=== PATIENT | female | born 1945 | race Caucasian/White ===

== ENCOUNTER 2019-03-13 08:56 | Outpatient (CLI) | payer MEDICARE, OTHER, SELFPAY ==
--- NOTE | 2019-03-13 09:04 | NM_ITS ---
WS: [id number] NUCLEAR MEDICINE PARATHYROID SCAN HISTORY: ATROPHY OF THYROID/CHRONIC KIDNEY DZ STAGE 3/HYPERCALCEMIA COMPARISON: None available. Patient is injected with 19.9 mCi technetium 99m Sestamibi. Static imaging of the anterior neck and u pper thorax submitted at injection time and one hour postinjection. Sternal notch marker and chin mar kers are placed. Normal activity in the thyroid gland during early imaging. Delayed imaging demonstrates washout of ra diotracer from the thyroid. There is an area of very vague increased uptake persisting along the infe rior RIGHT thyroid bed. NM/NM parathyroid [id number] IMPRESSION: Suspicious, very vague increased uptake persisting in the inferior RIGHT thyroi d bed. Suspicious for parathyroid adenoma.
== END 2019-03-13 08:57 | disposition home or self-care (01) ==
LOC: RAD 09:01
PROVIDERS: Family Provider Physician Assistant Medical; PCP Physician Assistant Medical; Visit Provider Internal Medicine Nephrology
DX: E03.4 Atrophy of thyroid (acquired) (principal); E83.52 Hypercalcemia; N18.3 Chronic kidney disease, stage 3 (moderate)
CPT/HCPCS: 78070; A9500

== ENCOUNTER 2021-06-01 11:24 | Emergency (ER) | payer MEDICARE, SELFPAY ==
[2021-06-01 12:23] VITALS: BP 118/84; PULSE 70; RESP 15; TEMP 36.8; O2SAT 97; BMI 32.5
[2021-06-01 16:45] LABS: Basophils % 0.2 %; Eosinophils % 0.2 %; Hematocrit 48.9 % (37.0-47.0); Hemoglobin 15.9 g/dL (11.5-15.3); Lymphocytes % 17.8 %; Mean Corpuscular HGB Conc 32.5 g/dL (30.0-36.0); Mean Corpuscular Hemoglobin 28.3 pg (28.0-34.0); Mean Corpuscular Volume 87.2 fl (81-99); Mean Platelet Volume 10.9 fL (7.4-10.4); Monocytes # 0.9 10^3/uL (0.2-0.9); Monocytes % 5.5 %; Neutrophils # 12.65 10^3/uL (1.8-7.7); Neutrophils % 75.9 %; Nucleated Red Blood Cells % 0 %; Platelet Count 478 10^3/cmm (130-400); Red Blood Count 5.61 10^6/uL (4.1-5.3); Red Cell Distribution Width 12.7 % (12.1-15.1); White Blood Count 16.7 10^3/uL (4.0-10.0)
[2021-06-01 17:15] LABS: Alanine Aminotransferase 7 U/L (0-33); Albumin Level 4.9 g/dL (3.5-5.2); Alkaline Phosphatase 112 IU/L (35-105); Anion Gap 20.3 (5-19); Aspartate Amino Transferase 14 U/L (0-32); Blood Urea Nitrogen 41 mg/dL (8-23); Calcium 10.6 mg/dL (8.5-10.5); Carbon Dioxide 22 mmol/L (22-29); Chloride 96 mmol/L (98-107); Globulin 2.8 g/dL (1.3-4.6); Glucose 97 mg/dL (65-115); Lipase 19 U/L (13-60); Osmolality Calculated 288 mOsm/kg (285-295); Potassium 4.3 mmol/L (3.5-5.1); Sodium 134 mmol/L (136-145); Total Bilirubin 0.5 mg/dL (0.15-1.2); Total Protein 7.7 g/dL (6.6-8.7)
[2021-06-01 17:18] LABS: INR 1.19 (0.8-1.2)
[2021-06-01 17:19] LABS: Partial Thromboplastin Time 28.7 SECONDS (23.9-36.7)
--- NOTE | 2021-06-01 18:20 | CTR_ITS ---
PROCEDURE INFORMATION: Exam: CT Abdomen And Pelvis With Contrast Exam date and time: 06/01/2021 7:43 PM Age: 76 years old Clinical indication: Abdominal pain; Acute; Prior surgery; Surgery date: 6+ months; Surgery type: Lima, hyst; Patient HX: N/v/d. Heartburn; Additional info: Abd pain TECHNIQUE: Imaging protocol: Computed tomography of the abdomen and pelvis with contrast. Radiation optimization: All CT scans at this facility use at least one of these dose optimization techniques: automated exposure control; mA and/or kV adjustment per patient size (includes targeted exams where dose is matched to clinical indication); or iterative reconstruction. Contrast material: VISIPAQUE; Contrast volume: 95 ml; Contrast route: INTRAVENOUS (IV); COMPARISON: No relevant prior studies available. RADIATION DOSE METRICS: Total DLP (mGy-cm): 1495 FINDINGS: Lungs: The lung bases appear unremarkable. Diaphragm: There is a large hiatal hernia present. Liver: There are several punctate calcified granulomas in the liver. No acute hepatic abnormality. Gallbladder and bile ducts: The gallbladder is surgically absent. Pancreas: The pancreas is normal in appearance. No pancreatic duct dilatation. Spleen: Single calcified granuloma in the spleen. No acute splenic abnormality. Adrenal glands: The adrenal glands appear within normal limits. Kidneys and ureters: Multiple less than 10 mm low-density renal lesions, too small to characterize, likely small cysts. No hydronephrosis. Ureters appear normal. No obstructive uropathy. Stomach and bowel: The stomach is partially located within the hiatal hernia. There is mild compression of the body of the stomach, causing partial gastric outlet obstruction. The small bowel is unremarkable as demonstrated. No acute abnormality/inflammatory change of the colon. Appendix: No evidence of appendicitis. Intraperitoneal space: No free air. No significant fluid collection. Vasculature: The aorta is atherosclerotic. No aortic aneurysm. Lymph nodes: No pathologically enlarged lymph nodes are demonstrated. Urinary bladder: The urinary bladder is unremarkable in appearance. Reproductive: The uterus is not visualized, consistent with hysterectomy. Bones/joints: Degenerative spine changes are noted. No acute osseous abnormality. Soft tissues: The soft tissues appear unremarkable. CT/CT abdomen pelvis w con* [id number] IMPRESSION: 1. There is a large hiatal hernia present. 2. The stomach is partially located within the hiatal hernia. There is mild compression of the body of the stomach, causing partial gastric outlet obstruction. No ischemic change of the stomach. 3. Findings of old granulomatous disease are identified. COMMENTS: Consistent with the [employer]'s Incidental Findings Committee white paper (J Am Manuela Radiol 2018): Any incidental renal lesion less than 1 cm or classified as too small to characterize, or any incidental cystic renal lesion characterized as simple-appearing, is likely benign. No follow-up imaging is recommended for these lesions per consensus recommendations based on imaging criteria.
[2021-06-01 18:34] VITALS: BP 132/87; PULSE 68; RESP 18; O2SAT 98
--- NOTE | 2021-06-01 18:39 | W.ED.NAVMDI ---
HPI - Nausea/Vomiting/Diarrhea General: Chief complaint: Nausea/Vomiting/Diarrhea Stated complaint: Throwing up black with some pain in upper abd area Time Seen by Provider: 06/01/21 18:12 Source: patient Mode of arrival: ambulatory Limitations: no limitations History of Present Illness: 76-year-old female who states that she has been having some nausea vomiting over the last week she states she she had a food impaction a week ago but was able to vomit up after eat hamburger states that since then she been having some dark vomitus checks her PCP last week is trying to get into GI for a scope. She has had some epigastric abdominal pain states she has had some dark vomitus has not noticed any blood in her vomit has not had any change in of her stool color no dark tarry stool or blood in her stool. She denies any fevers. Denies any worsening proving factors last vomiting episode was last night states that actually her vomiting is improved and she felt better this evening. Associated nausea: Yes Associated symtoms: Reports nausea; Denies chest pain, dysuria or headache(s) Review of Systems Const: Denies: fever(s), chills, body aches or change in appetite Eyes: Denies: blurry vision or eye discomfort ENMT: Denies: throat pain or dental pain Card: Denies: chest pain Resp: Denies: dyspnea GI: Reports: abdominal pain, nausea and vomiting : Denies: dysuria Musc: Denies: neck pain or back pain Skin/Breast: Denies: rash Neuro: Denies: headache(s) Psych: Denies: depression Zane/Lymph: Denies: easy bruising All/Imm: Denies: urticaria PFS ED PFSH: Surgical History (Updated 06/01/21 @ 18:51 by Nic Anrdes MD) No pertinent past surgical history Social History (Updated 06/01/21 @ 18:51 by Nic Andres MD) Substance/Drug Use: never Physical Exam Const: COMMON NORMALS: no acute distress, patient oriented x3 and healthy appearing HENMT: COMMON NORMALS: normocephalic and atraumatic HEAD & SCALP: normocephalic and atraumatic Eye: COMMON NORMALS: Equal, round and reactive pupils present and EOMs intact bilaterally PUPIL: Yes Equal, round and reactive pupils present Neck/C-Spine: COMMON NORMALS: full ROM and supple Chest: COMMONS NORMALS: normal inspection of the chest and normal palpation of entire chest wall Resp: COMMON NORMALS: normal respiratory effort, No retractions, No use of accessory muscles and clear to auscultation bilaterally AUSCULTATION: clear to auscultation bilaterally Cardio: COMMON NORMALS: regular rate, regular rhythm and No murmurs present (Cardio) RATE: regular rate RHYTHM: regular rhythm GI: COMMON NORMALS: Normal to inspection, nondistended, normoactive bowel sounds present, Soft to palpation and no masses PALPATION: Yes Soft to palpation and Yes Tenderness to palpation present (GI) (epigastric tenderness) Extremity: COMMON NORMALS: normal to inspection and full ROM Neuro: COMMON NORMALS: patient oriented x3, moves all extremities and no focal motor deficits Psych: COMMON NORMALS: mental status grossly normal, Normal thought process present and cooperative THOUGHT PROCESS: Normal thought process present Skin: COMMON NORMALS: no rashes or lesions noted and no wounds GENERAL SKIN EXAM: no rashes or lesions noted Course Vital Signs: Vital signs: Vital Signs Temperature 98.2 F 06/01/21 12:23 Pulse Rate 78 06/01/21 20:33 Respiratory Rate 13 06/01/21 20:33 Blood Pressure 140/101 06/01/21 20:33 Pulse Oximetry 97 06/01/21 20:33 MDM - Nausea/Vomiting/Diarrhea Medical Decision Making Patient presents with abdominal pain along with vomiting CT scan did show a partial gastric obstruction with large hiatal hernia. I spoke to surgeon on-call here Dr. Mckeon who recommended patient being transferred to higher level care requiring GI. I did spoke to GI along with hospitalist at [facility] will transfer there at this time. She has been stable here. Lab Data : 06/01/21 16:16 06/01/21 16:16 Radiology Impressions Abdomen/Pelvis CT 06/01/21 18:20 IMPRESSION: 1. There is a large hiatal hernia present. 2. The stomach is partially located within the hiatal hernia. There is mild compression of the body of the stomach, causing partial gastric outlet obstruction. No ischemic change of the stomach. 3. Findings of old granulomatous disease are identified. COMMENTS: Consistent with the [employer]'s Incidental Findings Committee white paper (J Am Manuela Radiol 2018): Any incidental renal lesion less than 1 cm or classified as too small to characterize, or any incidental cystic renal lesion characterized as simple-appearing, is likely benign. No follow-up imaging is recommended for these lesions per consensus recommendations based on imaging criteria. Laboratory Results WBC 16.7 10^3/uL (4.0-10.0) H 06/01/21 16:16 RBC 5.61 10^6/uL (4.1-5.3) H 06/01/21 16:16 Hgb 15.9 g/dL (11.5-15.3) H 06/01/21 16:16 Hct 48.9 % (37.0-47.0) H 06/01/21 16:16 MCV 87.2 fl (81-99) 06/01/21 16:16 MCH 28.3 pg (28.0-34.0) 06/01/21 16:16 MCHC 32.5 g/dL (30.0-36.0) 06/01/21 16:16 RDW 12.7 % (12.1-15.1) 06/01/21 16:16 Plt Count 478 10^3/cmm (130-400) H 06/01/21 16:16 MPV 10.9 fL (7.4-10.4) H 06/01/21 16:16 Neut % (Auto) 75.9 % 06/01/21 16:16 Lymph % (Auto) 17.8 % 06/01/21 16:16 [place] % (Auto) 5.5 % 06/01/21 16:16 Eos % (Auto) 0.2 % 06/01/21 16:16 Baso % (Auto) 0.2 % 06/01/21 16:16 Neut # (Auto) 12.65 10^3/uL (1.8-7.7) H 06/01/21 16:16 Lymph # (Auto) 3.0 10^3/uL (0.8-4.8) 06/01/21 16:16 [place] # (Auto) 0.9 10^3/uL (0.2-0.9) 06/01/21 16:16 Eos # (Auto) 0.0 10^3/uL (0.0-0.8) 06/01/21 16:16 Baso # (Auto) 0.0 10^3/uL (0.0-0.1) 06/01/21 16:16 Nucleated RBC % (auto) 0 % 06/01/21 16:16 Nucleated RBCs # 0.0 /100WBC 06/01/21 16:16 PT 15.40 SECONDS (12.1-14.9) H 06/01/21 16:16 INR 1.19 (0.8-1.2) 06/01/21 16:16 APTT 28.7 SECONDS (23.9-36.7) 06/01/21 16:16 Sodium 134 mmol/L (136-145) L 06/01/21 16:16 Potassium 4.3 mmol/L (3.5-5.1) 06/01/21 16:16 Chloride 96 mmol/L (98-107) L 06/01/21 16:16 Carbon Dioxide 22 mmol/L (22-29) 06/01/21 16:16 Anion Gap 20.3 (5-19) H 06/01/21 16:16 BUN 41 mg/dL (8-23) H 06/01/21 16:16 Creatinine 1.2 mg/dL (0.5-0.9) H 06/01/21 16:16 GFR Calculation Not Reportable 06/01/21 16:16 Glucose 97 mg/dL (65-115) 06/01/21 16:16 Calculated Osmolality 288 mOsm/kg (285-295) 06/01/21 16:16 Lactic Acid 2.0 mmol/L (0.5-2.2) 06/01/21 22:00 Calcium 10.6 mg/dL (8.5-10.5) H 06/01/21 16:16 Total Bilirubin 0.5 mg/dL (0.15-1.2) 06/01/21 16:16 AST 14 U/L (0-32) 06/01/21 16:16 ALT 7 U/L (0-33) 06/01/21 16:16 Alkaline Phosphatase 112 IU/L (35-105) H 06/01/21 16:16 Total Protein 7.7 g/dL (6.6-8.7) 06/01/21 16:16 Albumin 4.9 g/dL (3.5-5.2) 06/01/21 16:16 Globulin 2.8 g/dL (1.3-4.6) 06/01/21 16:16 Lipase 19 U/L (13-60) 06/01/21 16:16 Gastric Occult Blood Negative (Negative) 06/01/21 20:39 Discharge Plan Discharge Patient Disposition: Xfer Short-Term Hosp Clinical Impression: Gastric outlet obstruction, Vomiting Condition: Stable Referrals: Kenneth Aquino [Primary Care Provider] - Coding Level of Care Code ED Telegraphic Typewriter Installer for Chg Fwd Exam Comprehensive
[2021-06-01] MEDS: sodium chloride 0.9% 1,000 ML 999 ML IV (18:50)
[2021-06-01] MEDS: ondansetron 2 mg/ML SDV 2 mL 4 MG IVP ×2 (18:50→20:30)
--- NOTE | 2021-06-01 18:51 | PC.NURSE ---
warm blanket provided to patient, patient denies any needs.
[2021-06-01 19:32] VITALS: BP 168/74; PULSE 62; RESP 17; O2SAT 99
[2021-06-01] MEDS: iodixanol 320 mg/mL 100mL Btl IV (20:12)
[2021-06-01 20:30] VITALS: RESP 16; O2SAT 96
[2021-06-01] MEDS: labetalol 5 mg/mL SDV 20mL 10 MG IVP (20:30)
[2021-06-01] MEDS: morphine 4 mg/mL SDV 1 mL IVP (20:30)
[2021-06-01 20:33] VITALS: BP 140/101; PULSE 78; RESP 13; O2SAT 97
[2021-06-01 21:10] LABS: Gastricult Occult Blood Negative (Negative)
[2021-06-01 22:38] VITALS: BP 111/78; PULSE 68; RESP 15; O2SAT 95
[2021-06-02 02:35] VITALS: BP 106/64; PULSE 64; RESP 17; O2SAT 93
[2021-06-02 05:21] VITALS: BP 130/81; PULSE 67; RESP 18; O2SAT 97
[2021-06-02 06:00] VITALS: BP 135/62; PULSE 58; RESP 13; O2SAT 94
[2021-06-02 07:13] VITALS: BP 115/57; PULSE 56; RESP 15; O2SAT 95
--- NOTE | 2021-06-02 07:14 | PC.NURSE ---
Report received from MARLIN Leal. Pt resting in bed, respirations even and unlabored. Care assumed.
[2021-06-02 07:54] VITALS: BP 111/60; PULSE 57; RESP 15
== END 2021-06-02 07:56 | disposition short-term general hospital (02) ==
PROVIDERS: Emergency Medicine; Emergency Provider Emergency Medicine; PCP Nurse Practitioner Family
DX: K31.1 Adult hypertrophic pyloric stenosis (principal); R11.10 Vomiting, unspecified; K44.9 Diaphragmatic hernia without obstruction or gangrene
CPT/HCPCS: 74177; 80053; 82271; 83605; 83690; 85025; 85610; 85730; 96361; 96374; 96375; 96376; 99285; J2270; J2405; J3490; J7030; Q9967

== ENCOUNTER → 2022-07-17 10:10 | Outpatient (BNVA) | payer MEDICARE, SELFPAY | PROVIDERS: PCP Nurse Practitioner Family; Visit Provider Nurse Practitioner Family | DX: R39.9 Unspecified symptoms and signs involving the genitourinary system (principal); Z78.9 Other specified health status; R63.1 Polydipsia | CPT/HCPCS: 81000; 82962; 87086 ==

== ENCOUNTER → 2022-07-26 13:38 | Outpatient (BNVA) | payer MEDICARE, SELFPAY | PROVIDERS: PCP Nurse Practitioner Family; Visit Provider Nurse Practitioner Family | DX: N39.0 Urinary tract infection, site not specified (principal) | CPT/HCPCS: 81000; 87086 ==

== ENCOUNTER 2023-05-15 11:16 | Outpatient (CLI) | payer MEDICARE, SELFPAY ==
--- NOTE | 2023-05-15 16:55 | PETR_ITS ---
PROCEDURE INFORMATION: Exam: PET/CT Skull Base to Mid-thigh Exam date and time: 05/15/2023 12:02 PM Age: 78 years old Clinical indication: Symptoms: Mass of vulva LABS AND CLINICAL REPORTS: Glucose: 101 mg/dl Treatment strategy for malignancy (PET staging): Initial Staging (PI) TECHNIQUE: Imaging protocol: Following at least four-hour fasting and following the injection of radiopharmaceutical, low dose CT images were obtained. Then, PET images were obtained. Attenuation corrected images were constructed using the CT scan. Fused images of PET and CT were reviewed. The standardized uptake values (SUV) reported below are maximum values within a region of interest, expressed in gm/ml. Exam includes orbital meatal line to mid-thigh. Radiopharmaceutical: 9.07 mCi F-18 FDG (Fluorodeoxyglucose), IV. Time of imaging post radiopharmaceutical administration: 1 hour Injection site: Right antecubital COMPARISON: CT abdomen pelvis w con* [id number] 04/03/2023 9:44 AM, CT abdomen and pelvis 06/01/2021 FINDINGS: Brain: Visualized brain has normal physiologic uptake. Pharynx: No abnormal uptake. Larynx: No abnormal uptake. Thyroid: Asymmetric uptake in the right thyroid lobe is noted, SUV max 4.9 without a well-defined nodule on the CT images. Lungs, pleura and trachea: No abnormal uptake. Mild non radiotracer avid biapical pleural scarring is noted. A left lower lobe calcified granuloma is noted. Heart: Normal physiologic uptake. Mediastinal space: No abnormal uptake. Diaphragm: Small hiatal hernia. No abnormal uptake. Liver: No abnormal uptake. Gallbladder and bile ducts: No abnormal uptake. Cholecystectomy clips are present. Pancreas: No abnormal uptake. Spleen: No abnormal uptake. Calcified granulomas in the spleen are present. Adrenal glands: No abnormal uptake. Kidneys and ureters: Normal physiologic uptake. Stomach and bowel: No abnormal uptake. Vasculature: No abnormal uptake. There are diffuse atherosclerotic changes including within the coronary arteries. Lymph nodes: A right paratracheal lymph node measuring 1 cm on series 3, image 60 demonstrates mild uptake, SUV max 2.6. Uptake within an approximately 1 cm subcarinal lymph node is noted, SUV max 3.6. Enlarged bilateral inguinal region lymph nodes are noted which are radiotracer avid. Examples: On the right measuring 1.9 cm on series 3, image 198, SUV max 9.7; measuring 1.7 cm on the right on image 201, SUV max 12.3, and measuring 1.7 cm on the left and image 202, SUV max 9.0. Bones/joints: No abnormal uptake in the visualized axial and appendicular skeleton. Degenerative changes in the spine are present. Soft tissues: Elevated uptake in the region of the vulva and perineum is noted posteriorly extending to the anterior margin of the anus, SUV max 24.6 with an associated lobulated ill-defined soft tissue density mass which is most prominent on the right measuring up to approximately 6.7 x 4.8 cm in the axial plane on series 3, image 223 x approximately 5 cm superior to inferior. METRICS: Mediastinal blood pool: SUV max 2.8 [facility] IN[facility] [id number] IMPRESSION: 1. Abnormal uptake (SUV max 24.6) in the region of a mass in the region of the posterior vulva/peroneum is noted consistent with malignancy. 2. Bilateral radiotracer avid enlarged inguinal lymph nodes are noted consistent with metastases. 3. Mild uptake within non pathologically enlarged mediastinal lymph nodes is noted. Although malignancy cannot be excluded, infectious or inflammatory etiologies may account for this appearance. 4. Old granulomatous changes. 5. Additional nonurgent findings as detailed above.
== END 2023-05-15 11:17 | disposition home or self-care (01) ==
LOC: RAD 11:17
PROVIDERS: PCP Family Medicine; Visit Provider Obstetrics & Gynecology
DX: C51.9 Malignant neoplasm of vulva, unspecified (principal); R59.0 Localized enlarged lymph nodes; N90.89 Other specified noninflammatory disorders of vulva and perineum
CPT/HCPCS: 78815; A9552

== ENCOUNTER 2023-05-23 16:30 | Oncology outpatient (recurring) (ONCR) | payer MEDICARE, SELFPAY ==
--- NOTE | 2023-05-02 11:32 | N.ONRAD NP_ITS ---
Radiation Oncology New Patient Visit Patient: Juliann Greene MR#: [id number] : 1945> Age: 78> Sex: Female> Dictated by: Dr. Vicki Benitez Date of Service: 05/02/2023 Referring Physician(s) : Frank QUALITY RN Diagnosis: Squamous of carcinoma of the vulva Radiotherapy to date: Summary > No prior radiation therapy. Chief Complaint / History of Present Illness: Ms. Greene is a 78-year-old woman 2 para 2 who initially noticed spotting after intercourse in November 2022. She hesitates with saying she knew anything was different prior to that even though she had felt a knot in the area. She then began to have increasing dysuria with occasional discharge and bleeding. She initially was given antibiotics to try without response. She was then sent to gynecology who referred her onto gynecology oncology. She had a biopsy done which did show an area at the edge of the biopsy which appeared to be squamous carcinoma. She had a CT scan at [facility] in [place] that were currently getting the report from but according to the gynecological oncologist she appeared to have inguinal and pelvic nodes which could not be palpated. She is scheduled for PET scan on May 14 and she is here today to discuss radiation as an option since surgery is off the table. Current Medications: Aspirin, LEGAL AID thyroid, Bactrim, Allergies: Penicillin Medical History: Hypertension hypothyroidism CKD stage IIIa hiatal hernia, chronic UTIs, chronic yeast infections, no history of collagen vascular disease. No previous radiation therapy. Surgical History: LEIDA for cervical cancer decades ago, D&C, coronary artery disease with stent placement cholecystectomy, fundoplasty Family History: Noncontributory Social History: She lives about [place] hour [place] a half away with her Current Complaints / Review of Systems: . Her current complaints have mainly to do with the dysuria. She denies any current pain in the area. And the bleeding has become minimal. Vital Signs: Performed on 05/02/2023 9:59 AM BMI - 32.654 kg/m2 (high), Height - 60 in, Weight - 167.2 lbs, Temperature - 96.9 f, Pulse - 93 /min, Respiration - 18 /min, O2 Sat - 97 %, Pain - 0, Fatigue - 0 and BP - 148/ 94 mm(hg)(high). Physical Exam: General: Patient is accompanied today by her . She is in no apparent distress. She had is sitting comfortably in the chair HEENT: Normocephalic atraumatic. Pupils are equal, sclera clear, extraocular muscles intact. Cardiovascular: Regular rate and rhythm Pulmonary: Respiratory rate is regular nonlabored Abdomen: Mildly protuberant without a hepatomegaly Extremities without clubbing cyanosis or edema Skin is warm and dry without ecchymoses QUALITY RN examination: External genitalia reveals the left labia to be completely involved with malignancy, the malignancy extends up onto the perineum and into the vaginal area. There are several small areas of bleeding and drainage. The area is quite tender to palpation. Neurological: Alert and orient x 3. 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 Greene at this time that were awaiting her PET scan for final staging purposes. We talked about the typical course of treatment which would involve the radiation. We talked about the planning process, the daily treatment regiment, and the risk and side effects both acute and long-term. At this point she verbalized understanding and she has agreed to proceed with the workup and treatment. She will keep her appointment on the for her PET scan will have her return a day or 2 later to undergo simulation and review those results. Currently all of her and her 's questions have been answered. I did ask him to write down any additional questions and would be happy to answer those over the phone since they live so far away. Signed by: 05/02/2023 11:32:13 AM <<Signature on File>> Time spent with patient:60 CPT Code: CPT Code:
== END 2023-05-27 23:59 | disposition home or self-care (01) ==
PROVIDERS: PCP Nurse Practitioner Family; Visit Provider Radiology Radiation Oncology
DX: Z53.9 Procedure and treatment not carried out, unspecified reason; Z51.0 Encounter for antineoplastic radiation therapy; C51.8 Malignant neoplasm of overlapping sites of vulva; C77.4 Secondary and unspecified malignant neoplasm of inguinal and lower limb lymph nodes
CPT/HCPCS: 77300; 77301; 77334; 77338; 99205

== ENCOUNTER 2023-06-14 08:50 | Oncology outpatient (recurring) (ONCR) | payer MEDICARE, SELFPAY ==
--- NOTE | 2023-05-29 09:34 | ONCRAD TMN_ITS ---
Radiation Oncology Weekly Treatment Management Patient: Juliann Greene MR#: [id number] : 1945 Attending Physician: Dr. Vicki Benitez Date of Service: 05/29/2023 Fractions: Referring Physician(s) : Diagnosis: C51.9 - Malignant neoplasm of vulva, unspecified, Diagnosed 04/09/2023 (Active) Stage CARMINE, T3, N2c, M0 Radiotherapy to date: Course: Vulva 2023, Treatment Site: Pelvis 50Gy, Ref. ID: [id number], Energy: 15X, Dose/Fx (cGy): 200, #Fx: , Dose Correction (cGy): 0, Total Dose Delivered (cGy): 400, Start Date: 05/28/2023, Elapsed Days: 1 Reason for visit: The patient is being seen today as part of their regularly scheduled weekly on treatment visits to assess for acute toxicities from radiotherapy. Review of Systems: Patient has noticed no changes from the radiation. She is having increased discomfort. Vital Signs: Performed on 05/29/2023 8:51 AM BMI - 32.771 kg/m2 (high), Height - 60 in, Weight - 167.8 lbs, Temperature - 96.4 f, Pulse - 85 /min, Respiration - 18 /min, O2 Sat - 98 %, Pain - 0, Fatigue - 2 and BP - 153/ 76 mm(hg)(high/). Physical Exam: On exam she is sitting off of her perineum by sitting sideways in the chair. Imaging: Radiation therapy imaging related to accurate target localization (i.e. KV, MV and CBCT) was reviewed. Appropriate changes, if any, were made to ensure treatment accuracy. Plan: She has gotten the sitz bath and she has a tub she can soak in. She picked up the Desitin. She also got some lidocaine spray which has helped some. I am going to go ahead and send in a jar of Silvadene for her to use when she begins to have some irritation from the treatment. She is also been using ibuprofen and I encouraged her to use her pain medicine if needed. I reminded her that it would cause constipation. Will otherwise continue with her treatments as planned Signed by: Dr. Vicki Benitez 05/29/2023 9:33:47 AM
--- NOTE | 2023-06-05 09:38 | ONCRAD TMN_ITS ---
Radiation Oncology Weekly Treatment Management Patient: Juliann Greene MR#: [id number] : 1945 Attending Physician: Dr. Vicki Benitez Date of Service: 06/05/2023 Fractions: 7 out of 25 Referring Physician(s) : Diagnosis: C51.9 - Malignant neoplasm of vulva, unspecified, Diagnosed 04/09/2023 (Active) Stage CARMINE, T3, N2c, M0 Radiotherapy to date: Course: Vulva 2023, Treatment Site: Pelvis 50Gy, Ref. ID: [id number], Energy: 15X, Dose/Fx (cGy): 200, #Fx: , Dose Correction (cGy): 0, Total Dose Delivered (cGy): 1,400, Start Date: 05/28/2023, Elapsed Days: 8 Reason for visit: The patient is being seen today as part of their regularly scheduled weekly on treatment visits to assess for acute toxicities from radiotherapy. Review of Systems: Patient has not started using her pain medicine. She says she is really had no additional discomfort at this point. Vital Signs: Performed on 06/05/2023 9:10 AM BMI - 32.498 kg/m2 (high), Height - 60 in, Weight - 166.4 lbs, Temperature - 97.2 f, Pulse - 78 /min, Respiration - 18 /min, O2 Sat - 96 %, Pain - 0, Fatigue - 0 and BP - 146/ 80 mm(hg)(high/). Physical Exam: Her skin on examination in the folds is shiny and moist. There is not appear appear to be any changes as yet from the treatment. Imaging: Radiation therapy imaging related to accurate target localization (i.e. KV, MV and CBCT) was reviewed. Appropriate changes, if any, were made to ensure treatment accuracy. Plan: I have asked her at this point to fiber picker 2 prescriptions 1 for yeast overgrowth and 1 for nausea as needed. We talked about using her sitz bath on a regular basis as she has not started using it yet. Will continue with treatments as planned Signed by: Dr. Vicki Benitez 06/05/2023 9:36:45 AM
[2023-06-11 10:12] LABS: Urine Appearance Clear (CLEAR); Urine Color Orange (Yellow)
[2023-06-11 10:13] LABS: Add Urine Microscopic? YES
[2023-06-11 10:15] LABS: Bacteria Urine 1+ /hpf; Mucus Urine 1+ /hpf; Squamous Epithelial Cell Urine RARE /hpf (0-5); Sulfosalicylic Acid Urine Negative (Negative); WBC Urine 15-25 /hpf (0-5)
[2023-06-11 10:16] LABS: Add Urine Culture? Yes
--- NOTE | 2023-06-12 10:23 | ONCRAD TMN_ITS ---
Radiation Oncology Weekly Treatment Management Patient: Jc Liz MR#: [id number] : 1945> Attending Physician: Dr. Vicki Benitez Date of Service: 06/12/2023 Fractions: Referring Physician(s) : Diagnosis: C51.9 - Malignant neoplasm of vulva, unspecified, Diagnosed 04/09/2023 (Active) Stage CARMINE, T3, N2c, M0 Radiotherapy to date: Course: Vulva 2023, Treatment Site: Pelvis 50Gy, Ref. ID: [id number], Energy: 15X, Dose/Fx (cGy): 200, #Fx: , Dose Correction (cGy): 0, Total Dose Delivered (cGy): 2,400, Start Date: 05/28/2023, Elapsed Days: 15 Reason for visit: The patient is being seen today as part of their regularly scheduled weekly on treatment visits to assess for acute toxicities from radiotherapy. Review of Systems: sHe still having dysuria but it is a little bit better. She is going to restart her cranberry pills that she actually quit taking. She does state that her pain is decreased and she is not taking any pain medicine. She is able to sit comfortably in a chair. Vital Signs: Physical Exam: No changes on exam Imaging: Radiation therapy imaging related to accurate target localization (i.e. KV, MV and CBCT) was reviewed. Appropriate changes, if any, were made to ensure treatment accuracy. Plan: Will continue with treatments as planned. I encouraged her to take any pain medicine down the line if needed. Signed by: Dr. Vicki Benitez 06/12/2023 10:22:00 AM
== END 2023-06-14 23:59 | disposition home or self-care (01) ==
PROVIDERS: PCP Nurse Practitioner Family; Visit Provider Radiology Radiation Oncology
DX: Z51.0 Encounter for antineoplastic radiation therapy (principal); C51.8 Malignant neoplasm of overlapping sites of vulva
CPT/HCPCS: 77336; 77386; 81001; 87086; 99024

== ENCOUNTER 2023-06-26 08:50 | Oncology outpatient (recurring) (ONCR) | payer MEDICARE, SELFPAY ==
--- NOTE | 2023-06-19 09:32 | ONCRAD TMN_ITS ---
Radiation Oncology Weekly Treatment Management Patient: Juliann Greene MR#: [id number] : 1945 Attending Physician: Dr. Vicki Benitez Date of Service: 06/19/2023 Fractions: Referring Physician(s) : Diagnosis: C51.9 - Malignant neoplasm of vulva, unspecified, Diagnosed 04/09/2023 (Active) Stage CARMINE, T3, N2c, M0 Radiotherapy to date: Course: Vulva 2023, Treatment Site: Pelvis 50Gy, Ref. ID: [id number], Energy: 15X, Dose/Fx (cGy): 200, #Fx: , Dose Correction (cGy): 0, Total Dose Delivered (cGy): 3,400, Start Date: 05/28/2023, Elapsed Days: Reason for visit: The patient is being seen today as part of their regularly scheduled weekly on treatment visits to assess for acute toxicities from radiotherapy. Review of Systems: Patient is using Aquaphor and just yesterday she started the Silvadene Vital Signs: Performed on 06/19/2023 9:04 AM BMI - 31.834 kg/m2 (high), Height - 60 in, Weight - 163 lbs, Temperature - 96.6 f, Pulse - 84 /min, Respiration - 18 /min, O2 Sat - 99 %, Pain - 0, Fatigue - 4 and BP - 146/ 76 mm(hg)(high/). Physical Exam: On exam her skin is hyperpigmented. Some of the hyperpigmentation has peeled. She has not developed any moist or dry desquamation. She had 1 small 2 mm area midline at the superior portion of the field that was in her fold that was erythematous and open Imaging: Radiation therapy imaging related to accurate target localization (i.e. KV, MV and CBCT) was reviewed. Appropriate changes, if any, were made to ensure treatment accuracy. Plan: Will continue with her treatments as planned. She will continue to use Aquaphor and Silvadene. Signed by: Dr. Vicki Benitez 06/19/2023 9:31:34 AM
== END 2023-06-26 23:59 | disposition home or self-care (01) ==
PROVIDERS: PCP Nurse Practitioner Family; Visit Provider Radiology Radiation Oncology
DX: Z51.0 Encounter for antineoplastic radiation therapy (principal); C51.8 Malignant neoplasm of overlapping sites of vulva
CPT/HCPCS: 77336; 77386; 99024

== ENCOUNTER 2023-07-19 09:14 | Oncology outpatient (recurring) (ONCR) | payer MEDICARE, SELFPAY ==
--- NOTE | 2023-06-27 22:47 | ONCRAD TMN_ITS ---
Radiation Oncology Weekly Treatment Management Patient: Juliann Greene MR#: [id number] : 1945 Attending Physician: Williams Powell Date of Service: 06/27/2023 Referring Physician(s) : Diagnosis: C51.9 - Malignant neoplasm of vulva, unspecified, Diagnosed 04/09/2023 (Active) Stage CARMINE, T3, N2c, M0 Radiotherapy to date: Course: Vulva 2023, Treatment Site: Pelvis 50Gy, Ref. ID: [id number], Energy: 15X, Dose/Fx (cGy): 200, #Fx: , Dose Correction (cGy): 0, Total Dose Delivered (cGy): 4,600, Start Date: 05/28/2023, Elapsed Days: 30 Reason for visit: The patient is being seen today as part of their regularly scheduled weekly on treatment visits to assess for acute toxicities from radiotherapy. Review of Systems: Using Sitz baths Sivadene and Aquaphor. No significant pain. Soft stool with no diarrhea. One open spot on labia noted by treatment staff. Vital Signs: Performed on 06/27/2023 9:10 AM BMI - 31.209 kg/m2 (high), Height - 60 in, Weight - 159.8 lbs, Temperature - 97.6 f, Pulse - 88 /min, Respiration - 18 /min, O2 Sat - 96 %, Pain - 6, Fatigue - 6 and BP - 143/ 76 mm(hg)(high/). Physical Exam: Imaging: Radiation therapy imaging related to accurate target localization (i.e. KV, MV and CBCT) was reviewed. Appropriate changes, if any, were made to ensure treatment accuracy. Plan: Good tolerance of treatment. Continue as planned. Signed by: Williams Powell 06/27/2023 10:45:43 PM Telemedicine Consent Patient seen today via Telemedicine by agreement and consent of patient. Telemedicine technology used during the visit include audio and, as available, review of images. This patient encounter is appropriate and reasonable under the circumstances given the patient???s particular presentation at this time. The patient has been advised of the potential risks and limitations of this mode of treatment (including but not limited to the absence of in-person examination) and has agreed to be treated in a remote fashion in spite of them. Any and all of the patient???s/patient???s family???s questions on this issue have been answered and I have made no promises or guarantees to the patient. The patient has also been advised to contact this office for worsening conditions or problems, and seek emergency medical treatment and/or call 911 if the patient deems either necessary.
--- NOTE | 2023-06-30 23:00 | N.ONRD TS_ITS ---
Radiation Oncology Treatment Summary Patient: Juliann Greene MR#: [id number] : 1945 Age: 78 Sex: Female Dictated by: Williams Powell Date of Service: 06/29/2023 Referring Physician(s) : Diagnosis: C51.9 - Malignant neoplasm of vulva, unspecified, Diagnosed 04/09/2023 (Active) Stage CARMINE, T3, N2c, M0 Radiotherapy to Date: Course: Vulva 2023, Treatment Site: Pelvis 50Gy, Ref. ID: [id number], Energy: 15X, Dose/Fx (cGy): 200, #Fx: 25 / 25, Dose Correction (cGy): 0, Total Dose Delivered (cGy): 5,000, Start Date: 05/28/2023, End Date: 06/29/2023, Elapsed Days: 32 Clinical Summary: The patient tolerated RT well. She had minimal open spot in labia. She did well with use of Tai dene, Sitz bath and Aquaphor Plan: End of treatment today. Continue on the above medication until the skin reaction resolves. Follow up in one month. Signed by: Williams Powell>06/30/2023 10:59:32 PM <<Signature on File>>
--- NOTE | 2023-07-19 09:41 | ONCRAD EPV_ITS ---
Radiation Oncology Established Patient Visit first month check after treatment Patient: Juliann Greene [id number] : 1945 Age: 78 Sex: Female Dictated by: Dr. Vicki Benitez Date of Service: 07/19/2023 Referring Physician(s) : Diagnosis: C51.9 - Malignant neoplasm of vulva, unspecified, Diagnosed 04/09/2023 (Active) Stage CARMINE, T3, N2c, M0 Radiotherapy to Date: Course: Vulva 2023, Treatment Site: Pelvis 50Gy, Ref. ID: [id number], Energy: 15X, Dose/Fx (cGy): 200, #Fx: 25 / 25, Dose Correction (cGy): 0, Total Dose Delivered (cGy): 5,000, Start Date: 05/28/2023, End Date: 06/29/2023, Elapsed Days: 32 Current History: Patient has done remarkably well. She says she is nearly healed up from the treatment. She has no nausea vomiting or diarrhea. Her appetite is returned. Her only issues today's she is developed increasing problems with yeast overgrowth in the inframammary folds and vaginally. Current Medications: Allergies: Current Complaints / Review of Systems: . Vital Signs: Performed on 07/19/2023 9:24 AM BMI - 30.272 kg/m2 (high), Height - 60 in, Weight - 155 lbs, Temperature - 97.9 f, Pulse - 85 /min, Respiration - 17 /min, O2 Sat - 100 %, Pain - 0, Fatigue - 0 and BP - 149/ 81 mm(hg)(high/). Physical Exam: General: Alert and oriented x 3. No acute distress. HEENT: Normocephalic, atraumatic. Extraocular Movements Intact: Pupils Equal, Round, Reactive to Light: Sclerae anicteric. . . LUNGS: Respiratory rate is regular nonlabored. HEART: Regular rate and rhythm ACCOUNT OFFICER exam: Examination of her perineum reveals the skin has nearly completely healed throughout the area. She has 2 small dry areas on the inner thigh. The labia minora are still erythematous and have a white patchy growth on them.. ABDOMEN nondistended and nontender EXTREMITIES: No peripheral edema is identified NEUROLOGIC alert and orient x 3. Gait and speech within normal limits Performance Status: 100 Lab: None pending. Pathology: Primary, c51.9 - malignant neoplasm of vulva, unspecified, Diagnosed 04/09/2023 (active) stage carmine, t3, n2c, m0. Imaging: See HPI Impression: Squamous cell carcinoma of the vulva Plan: Patient is recovered nicely in a little over a months time. She will continue to use a sitz bath. We talked about getting a refill on her Diflucan to help clear the yeast both in the inframammary area and vaginally. She will use her nystatin powder to help maintain clearance once she is completed the oral medication. We also talked about using deodorant under her breasts once she gets area clear. At this point she is in good spirits and has no issues. I have asked her to do all of these things to help clear the yeast and if she needs any assistance she is to call. Otherwise we will see her back in 6 months or should call if any problems should arise in the interim Signed by: 07/19/2023 9:40:21 AM <<Signature on File>> Time spent with patient:25 CPT Code: CPT Code:
== END 2023-07-27 23:59 | disposition home or self-care (01) ==
PROVIDERS: PCP Nurse Practitioner Family; Visit Provider Radiology Radiation Oncology
DX: C51.9 Malignant neoplasm of vulva, unspecified; Z92.3 Personal history of irradiation
CPT/HCPCS: 77336; 77386; 99024

== ENCOUNTER 2024-04-28 09:52 | Oncology outpatient (recurring) (ONCR) | payer MEDICARE, SELFPAY ==
--- NOTE | 2024-04-28 10:50 | ONCRAD EPV_ITS ---
Radiation Oncology Established Patient Visit Patient: Jc Humphreys [id number] : 1945> Age: 79> Sex: Female> Dictated by: Evan Park Date of Service: 04/28/2024 Referring Physician(s) : Diagnosis: C51.9 - Malignant neoplasm of vulva, unspecified, Diagnosed 04/09/2023 (Active) Stage CARMINE, T3, N2c, M0 Radiotherapy to Date: Course: Vulva 2023, Treatment Site: Pelvis 50Gy, Ref. ID: [id number], Energy: 15X, Dose/Fx (cGy): 200, #Fx: 25 / 25, Dose Correction (cGy): 0, Total Dose Delivered (cGy): 5,000, Start Date: 05/28/2023, End Date: 06/29/2023, Elapsed Days: 32 Current History: This is a pleasant 78-year-old female who comes back today 10 months after having completed XRT for her vulvar cancer. She states she is feeling much better and bowels are regular. She was noted to have a 2 mm tag in the area that was slightly raised and more erythematous. She is not sure if it has increased in size. She utilizes Preparation H without difficulty. Current Medications: Allergies: Current Complaints / Review of Systems: . Vital Signs: Performed on 04/28/2024 10:14 AM BMI - 30.857 kg/m2 (high), Height - 60 in, Weight - 158 lbs, Temperature - 96.3 f, Pulse - 92 /min, Respiration - 18 /min, O2 Sat - 99 %, Pain - 0, Fatigue - 0 and BP - 183/ 113 mm(hg)(high). Physical Exam: General: Alert and oriented x 3. No acute distress. HEENT: Normocephalic, atraumatic. Extraocular Movements Intact: Pupils Equal, Round, Reactive to Light and Accommodation: Sclerae anicteric. Oral cavity is clear without lesions, masses or ulcers. NECK: Supple without supraclavicular or jugular lymphadenopathy. LUNGS: Clear to auscultation bilaterally without rales, rhonchi or wheeze. HEART: Regular rate and rhythm, normal S1 and S2 without murmur, gallop or rub. MUSCULOSKELETAL: No tenderness or percussion pain over the axial skeleton, scapulae or pelvis. ABDOMEN: Soft, nontender, nondistended without masses or organomegaly. Bowell sounds are present. EXTREMITIES: No peripheral edema is identified. Limited motor and sensory examination are grossly intact and symmetric bilaterally. /GI: Normal female external genitalia for age. A RIGHT sided 2 mm white pustule is noted mild bleeding to touch. NEUROLOGIC: Cranial nerves II ???XII are grossly intact. Normal sensation, strength 5/5 in all extremities, normal gait, no ataxia. Performance Status: Lab: None pending. Pathology: Primary, c51.9 - malignant neoplasm of vulva, unspecified, Diagnosed 04/09/2023 (active) stage carmine, t3, n2c, m0. Imaging: See HPI Impression: Vulvar cancer stable S/P XRT 10 months RTC in 3 months or sooner if need be. PLAN: Signed by: 04/28/2024 10:49:08 AM <<Signature on File>> Time spent with patient: CPT Code: * CPT Code: *
== END 2024-05-26 23:59 | disposition home or self-care (01) ==
PROVIDERS: PCP Nurse Practitioner Family; Visit Provider Radiology Radiation Oncology
DX: C15.9 Malignant neoplasm of esophagus, unspecified (principal); L91.8 Other hypertrophic disorders of the skin; Z92.3 Personal history of irradiation
CPT/HCPCS: 99213

== ENCOUNTER 2024-07-28 09:51 | Oncology outpatient (recurring) (ONCR) | payer MEDICARE, SELFPAY ==
--- NOTE | 2024-07-28 10:59 | ONCRAD EPV_ITS ---
Radiation Oncology Established Patient Visit Patient: Juliann Greene [id number] : 1945 Age: 79 Sex: Female Dictated by: Evan Park Date of Service: 07/28/2024 Referring Physician(s) : Diagnosis: C51.9 - Malignant neoplasm of vulva, unspecified, Diagnosed 04/09/2023 (Active) Stage CARMINE, T3, N2c, M0 Radiotherapy to Date: Course: Vulva 2023 Treatment Site: Pelvis 50Gy Ref. ID: [id number] Energy: 15X Dose/Fx (cGy): 200 #Fx: 25 / 25 Dose Correction (cGy): 0 Total Dose Delivered (cGy): 5,000 Start Date: 05/28/2023 End Date: 06/29/2023 Elapsed Days: 32 Current History: Current Medications: Allergies: Current Complaints / Review of Systems: . Here for 13-month follow-up. Voices no complaints. Vital Signs: Performed on 07/28/2024 10:29 AM BMI - 32.81 kg/m2 (high), Height - 60 in, Weight - 168 lbs, Temperature - 96.2 f, Pulse - 78 /min, Respiration - 17 /min, O2 Sat - 96 %, Pain - 0, Fatigue - 0 and BP - 173/ 103 mm(hg)(high). Physical Exam: General: Alert and oriented x 3. No acute distress. HEENT: Normocephalic, atraumatic. Extraocular Movements Intact: Pupils Equal, Round, Reactive to Light and Accommodation: Sclerae anicteric. Oral cavity is clear without lesions, masses or ulcers. NECK: Supple without supraclavicular or jugular lymphadenopathy. LUNGS: Clear to auscultation bilaterally without rales, rhonchi or wheeze. HEART: Regular rate and rhythm, normal S1 and S2 without murmur, gallop or rub. MUSCULOSKELETAL: No tenderness or percussion pain over the axial skeleton, scapulae or pelvis. ABDOMEN: Soft, nontender, nondistended without masses or organomegaly. Bowell sounds are present. EXTREMITIES: No peripheral edema is identified. Limited motor and sensory examination are grossly intact and symmetric bilaterally. NEUROLOGIC: Cranial nerves II ???XII are grossly intact. Normal sensation, strength 5/5 in all extremities, normal gait, no ataxia. /GI: Normal female external genitalia for age. Good pink vaginal mucosa Performance Status: KPS 80 Lab: None pending. Pathology: Primary, c51.9 - malignant neoplasm of vulva, unspecified, Diagnosed 04/09/2023 (active) stage carmine, t3, n2c, m0. Imaging: See HPI Impression: Stable vulvar cancer s/p XRT 13 months ago PLAN: RTC in 3 months or sooner if need be and is scheduled for October 20, 2024 Signed by: 07/28/2024 10:58:18 AM <<Signature on File>> Time spent with patient: CPT Code: CPT Code:
== END 2024-08-25 23:59 | disposition home or self-care (01) ==
LOC: ONCMED 09:52
PROVIDERS: PCP Nurse Practitioner Family; Visit Provider Radiology Radiation Oncology
DX: C15.9 Malignant neoplasm of esophagus, unspecified (principal); Z92.3 Personal history of irradiation
CPT/HCPCS: 99213